=== PATIENT | male | born 1930 | race African-American/Black ===

== ENCOUNTER 2018-02-02 20:55 | Inpatient (IN) | payer MEDICARE, MEDICAID ==
[~2018-02-02] VITALS: Ht 177.8 cm; Wt 58.8 kg
[~2018-02-02 20:55] MED LIST: ACET-2178 PO; ASPI-986 PO; CLON0.1T PO; CRAN450T10 PO; DOCU-150 PO; FAMO-134 PO; FURO-151 PO; HYDR-523 PO; MAG-55 PO; MULT1TAB11 PO; OCD PO
[2018-02-02] MEDS ORDERED: SODIUM CHLORIDE 0.9% 500 ML IV ONE (22:15)
[2018-02-02] MEDS ORDERED: ONDANSETRON HCL 4MG/2ML INJ IV ONE (22:15)
[2018-02-02 22:48] LABS: BASOPHILS % 0.4 % (0.0-2.0); EOSINOPHILS % 0.5 % (0.0-5.0); HEMATOCRIT. 34.4 % (42.0-52.0); HEMOGLOBIN. 11.1 g/dL (14.0-18.0); LYMPHOCYTES % 9.3 % (20.0-50.0); MEAN CORPUSCULAR HEMOGLOBIN 27.8 pg (28.0-32.0); MEAN CORPUSCULAR VOLUME 86.4 fL (80.0-94.0); MEAN PLATELET VOLUME 8.2 fl (7.4-10.4); MONOCYTES % 5.8 % (2.0-8.0); PLATELET 208 x1000/uL (130-400); RED BLOOD CELL COUNT 3.99 mill/uL (4.7-6.1); RED CELL DISTRIBUTION WIDTH 15.9 % (11.6-14.6)
[2018-02-02 22:58] LABS: CHLORIDE 103 mEq/L (98-107)
[2018-02-02 23:25] LABS: INR 1.1; PROTHROMBIN TIME 11.4 sec (9.1-11.1)
[2018-02-03] MEDS ORDERED: PIPERACILLIN/TAZOBACTAM 3.375GM/50ML PREMIX IV ONE (00:15)
[2018-02-03] MEDS ORDERED: SODIUM CHLORIDE 0.9% 1000ML BAG (SEPSIS BOLUS) IV ONE (00:15)
[2018-02-03] MEDS ORDERED: PIPERACILLIN/TAZ 3.375G PREMIX 50 ML IV NR (00:30)
[2018-02-03 00:46] LABS: CLARITY URINE TURBID (CLEAR); COLOR URINE ORANGE (YELLOW); KETONES URINE NEGATIVE (NEGATIVE); LEUKOCYTE ESTERASE URINE 1+ (NEGATIVE); NITRITE URINE POSITIVE (NEGATIVE); OCCULT BLOOD URINE 3+ (NEGATIVE); PROTEIN URINE 2+ (NEGATIVE); SPECIFIC GRAVITY URINE 1.027 (1.005-1.030)
[2018-02-03] MEDS ORDERED: IPRATROPIUM/ALBUTEROL 0.5-3(2.5)MG/3ML NEB INH PRN (14:15)
[2018-02-03] MEDS ORDERED: ONDANSETRON HCL 4MG/2ML INJ IV PRN (14:15)
[2018-02-03] MEDS ORDERED: DEXTROSE 50% WATER 50ML SYRINGE IV ONE (14:47)
[2018-02-03] MEDS ORDERED: PANTOPRAZOLE SODIUM 40 MG/VIAL IV NR (15:00)
[2018-02-03] MEDS ORDERED: DEXTROSE 50% WATER 50ML SYRINGE IV NR (15:00)
[2018-02-03 16:00] VITALS: BP 124/67
[2018-02-03 16:25] LABS: BG BASE EXCESS 7.6 mmol/L (-2.0-2.0); BG CARBOXYHEMOGLOBIN 0.8 % (0.5-1.5); BG DEOXYHEMOGLOBIN 10.5 % (0.0-5.0); BG FRACTION INSPIRED OXYGEN 36; BG HCO3 ACT 34.2 mmol/L (22.0-26.0); BG METHEMOGLOBIN 0.3 % (0.0-1.5); BG OXYGEN SATURATION 89.4 % (92.0-98.5); BG OXYHEMOGLOBIN 88.4 % (94.0-97.0); BG PCO2 58.5 mmHg (35.0-45.0); BG PH 7.385 (7.350-7.450); BG SAMPLE SITE LEFT BRACHIAL; BG TOTAL HEMOGLOBIN 11.6 g/dL (12.0-18.0); BG VENT MODE NASAL CANNULA
[2018-02-03] MEDS ORDERED: DEXT 5%/0.45% NACL 500ML 500 ML IV SCH (18:00)
[2018-02-03] MEDS ORDERED: METHYLPREDNISOLONE SOD SUCC 125 MG/2 ML VIAL IV NR (18:00)
[2018-02-03] MEDS ORDERED: MORPHINE SULFATE 4 MG/ML CPJ (NOT FOR IM USE) IV PRN (18:00)
[2018-02-03] MEDS ORDERED: LEVOFLOXACIN 500MG PREMIX 100 ML IV SCH (19:00)
[2018-02-03] MEDS: PANTOPRAZOLE SODIUM 40 MG/VIAL IV SCH (19:02)
[2018-02-03 20:00] VITALS: BP 117/63
[2018-02-03] MEDS: METRONIDAZOLE 500 MG PREMIX 100 ML IV SCH (21:09)
[2018-02-04] VITALS: BP 145/81
[2018-02-04 04:00] VITALS: BP 126/81
[2018-02-04] MEDS: IPRATROPIUM/ALBUTEROL 0.5-3(2.5)MG/3ML NEB INH SCH ×4 (05:10→20:50)
[2018-02-04] MEDS: METRONIDAZOLE 500 MG PREMIX 100 ML IV SCH ×3 (05:45→22:20)
[2018-02-04 06:56] LABS: BASOPHILS % 0.3 % (0.0-2.0); HEMATOCRIT. 35.6 % (42.0-52.0); HEMOGLOBIN. 11.7 g/dL (14.0-18.0); LYMPHOCYTES % 15.4 % (20.0-50.0); MEAN CORPUSCULAR HEMOGLOBIN 28.4 pg (28.0-32.0); MEAN CORPUSCULAR VOLUME 86.7 fL (80.0-94.0); MEAN PLATELET VOLUME 9.1 fl (7.4-10.4); MONOCYTES % 0.9 % (2.0-8.0); NEUTROPHILS % 83.4 % (40.0-76.0); PLATELET 212 x1000/uL (130-400); RED CELL DISTRIBUTION WIDTH 15.7 % (11.6-14.6)
[2018-02-04 07:03] LABS: CHLORIDE 105 mEq/L (98-107)
[2018-02-04 08:00] VITALS: BP 148/80
[2018-02-04 08:32] LABS: BG BASE EXCESS 4.2 mmol/L (-2.0-2.0); BG CARBOXYHEMOGLOBIN 0.8 % (0.5-1.5); BG DEOXYHEMOGLOBIN 5.9 % (0.0-5.0); BG FRACTION INSPIRED OXYGEN 32; BG HCO3 ACT 30.7 mmol/L (22.0-26.0); BG METHEMOGLOBIN 0.2 % (0.0-1.5); BG OXYHEMOGLOBIN 93.1 % (94.0-97.0); BG PH 7.364 (7.350-7.450); BG PO2 72.2 mmHg (75.0-100.0); BG SAMPLE SITE LEFT BRACHIAL; BG TOTAL HEMOGLOBIN 11.7 g/dL (12.0-18.0); BG VENT MODE NASAL CANNULA
[2018-02-04] MEDS: BUDESONIDE 0.5MG/2ML NEB HHN SCH ×2 (08:49→20:50)
[2018-02-04] MEDS: AMLODIPINE 10MG TABLET PO SCH (09:20)
[2018-02-04] MEDS: PANTOPRAZOLE SODIUM 40 MG/VIAL IV SCH (09:20)
[2018-02-04 12:00] VITALS: BP 107/58
[2018-02-04 16:00] VITALS: BP 95/46
[2018-02-04 20:00] VITALS: BP 97/42
[2018-02-04] MEDS: LEVOFLOXACIN 250MG PREMIX 50 ML IV SCH (21:05)
[2018-02-05] VITALS: BP 101/58
[2018-02-05] MEDS: IPRATROPIUM/ALBUTEROL 0.5-3(2.5)MG/3ML NEB INH SCH ×4 (00:45→21:02)
[2018-02-05 04:00] VITALS: BP 115/61
[2018-02-05] MEDS: METRONIDAZOLE 500 MG PREMIX 100 ML IV SCH ×3 (05:28→21:26)
[2018-02-05 07:38] LABS: BASOPHILS % 0.5 % (0.0-2.0); EOSINOPHILS % 0.1 % (0.0-5.0); HEMATOCRIT. 31.2 % (42.0-52.0); HEMOGLOBIN. 10.4 g/dL (14.0-18.0); LYMPHOCYTES % 17.9 % (20.0-50.0); MEAN CORPUSCULAR HEMOGLOBIN 28.8 pg (28.0-32.0); MEAN CORPUSCULAR VOLUME 86.4 fL (80.0-94.0); MEAN PLATELET VOLUME 8.2 fl (7.4-10.4); MONOCYTES % 7.7 % (2.0-8.0); NEUTROPHILS % 73.8 % (40.0-76.0); PLATELET 175 x1000/uL (130-400); RED BLOOD CELL COUNT 3.62 mill/uL (4.7-6.1); RED CELL DISTRIBUTION WIDTH 15.6 % (11.6-14.6)
[2018-02-05 08:00] VITALS: BP 105/49
[2018-02-05 08:10] LABS: CHLORIDE 105 mEq/L (98-107)
[2018-02-05] MEDS: BUDESONIDE 0.5MG/2ML NEB HHN SCH ×2 (08:10→21:01)
[2018-02-05] MEDS: AMLODIPINE 10MG TABLET PO SCH (09:00)
[2018-02-05] MEDS: PANTOPRAZOLE SODIUM 40 MG/VIAL IV SCH (10:15)
[2018-02-05 12:00] VITALS: BP 124/66
[2018-02-05 16:00] VITALS: BP 122/68
[2018-02-05 20:00] VITALS: BP 128/66
[2018-02-05] MEDS: LEVOFLOXACIN 250MG PREMIX 50 ML IV SCH (20:00)
[2018-02-06] VITALS: BP 120/70
[2018-02-06] MEDS: IPRATROPIUM/ALBUTEROL 0.5-3(2.5)MG/3ML NEB INH SCH ×4 (02:39→21:26)
[2018-02-06 04:00] VITALS: BP 101/71
[2018-02-06] MEDS ORDERED: METRONIDAZOLE 500MG TABLET PO SCH (06:00)
[2018-02-06 08:00] VITALS: BP 138/73
[2018-02-06] MEDS: BUDESONIDE 0.5MG/2ML NEB HHN SCH ×2 (08:45→21:26)
[2018-02-06] MEDS: AMLODIPINE 10MG TABLET PO SCH (08:48)
[2018-02-06] MEDS: PANTOPRAZOLE SODIUM 40 MG/VIAL IV SCH (08:48)
[2018-02-06 12:00] VITALS: BP 109/64
[2018-02-06] MEDS ORDERED: FUROSEMIDE 40MG/4ML VIAL IVP SCH (12:30)
[2018-02-06 16:00] VITALS: BP 134/67
[2018-02-06 20:00] VITALS: BP 108/55
[2018-02-06] MEDS ORDERED: LEVOFLOXACIN 250MG TABLET PO SCH (20:00)
[2018-02-07] VITALS (7 sets, daily range): BP systolic 110–132; BP diastolic 63–74
[2018-02-07] MEDS: IPRATROPIUM/ALBUTEROL 0.5-3(2.5)MG/3ML NEB INH SCH ×3 (01:04→15:15)
[2018-02-07 06:46] LABS: BASOPHILS % 0.6 % (0.0-2.0); EOSINOPHILS % 1.8 % (0.0-5.0); HEMATOCRIT. 32.9 % (42.0-52.0); HEMOGLOBIN. 10.8 g/dL (14.0-18.0); LYMPHOCYTES % 16.6 % (20.0-50.0); MEAN CORPUSCULAR VOLUME 85.5 fL (80.0-94.0); MEAN PLATELET VOLUME 8.2 fl (7.4-10.4); MONOCYTES % 8.9 % (2.0-8.0); NEUTROPHILS % 72.1 % (40.0-76.0); PLATELET 168 x1000/uL (130-400); RED BLOOD CELL COUNT 3.85 mill/uL (4.7-6.1); RED CELL DISTRIBUTION WIDTH 15.9 % (11.6-14.6)
[2018-02-07 07:25] LABS: CHLORIDE 101 mEq/L (98-107)
[2018-02-07] MEDS: BUDESONIDE 0.5MG/2ML NEB HHN SCH (08:35)
[2018-02-07] MEDS: PANTOPRAZOLE SODIUM 40 MG/VIAL IV SCH (09:49)
[2018-02-07] MEDS: AMLODIPINE 10MG TABLET PO SCH (09:51)
[2018-02-07] MEDS ORDERED: ATORVASTATIN CALCIUM 10MG TABLET PO SCH (21:00)
[2018-02-08] MEDS ORDERED: OMEPRAZOLE 20MG CAPSULE EXTENDED RELEASE PO SCH (06:45)
[2018-02-12] MEDS ORDERED: ATOR10TA PO (12:44)
[2018-02-12] MEDS ORDERED: ONDA4TAB5 PO (12:44)
[2018-02-12] MEDS ORDERED: AMLO10TA4 PO (12:44)
[2018-02-12] MEDS ORDERED: ACET-2178 PO (12:44)
[2018-02-12] MEDS ORDERED: IPRA3AMP31 NEB (12:44)
[2018-02-12] MEDS ORDERED: BUDE0.5A3 NEB (12:44)
[2018-02-12] MEDS ORDERED: OMEP20CA10 PO (12:44)
[2018-02-12] MEDS ORDERED: CRAN450T10 PO (12:44)
[2018-02-12] MEDS ORDERED: DOCU-138 PO (12:44)
== END 2018-02-07 18:05 | DRG 871 ==
LOC: ER 20:55 → 5WST 02-03 00:23 → SUPCPDRO 02-03 14:01 → ENRESERV 02-03 14:54
PROVIDERS: ADMIT Hospitalist; ATTEND Hospitalist
DX: A41.9 Sepsis, unspecified organism (principal); J96.00 Acute respiratory failure, unspecified whether with hypoxia or hypercapnia; K85.10 Biliary acute pancreatitis without necrosis or infection; N39.0 Urinary tract infection, site not specified; J44.1 Chronic obstructive pulmonary disease with (acute) exacerbation; I13.0 Hypertensive heart and chronic kidney disease with heart failure and stage 1 through stage 4 chronic kidney disease, or unspecified chronic kidney disease; I50.32 Chronic diastolic (congestive) heart failure; I31.3 Pericardial effusion (noninflammatory); J98.11 Atelectasis; K80.18 Calculus of gallbladder with other cholecystitis without obstruction; F03.90 Unspecified dementia, unspecified severity, without behavioral disturbance, psychotic disturbance, mood disturbance, and anxiety; I73.9 Peripheral vascular disease, unspecified; K21.9 Gastro-esophageal reflux disease without esophagitis; N18.9 Chronic kidney disease, unspecified; K82.8 Other specified diseases of gallbladder; R32 Unspecified urinary incontinence; R74.0 Nonspecific elevation of levels of transaminase and lactic acid dehydrogenase [LDH]; Z86.73 Personal history of transient ischemic attack (TIA), and cerebral infarction without residual deficits; Z95.828 Presence of other vascular implants and grafts; Z79.899 Other long term (current) drug therapy; Z79.82 Long term (current) use of aspirin
CPT/HCPCS: 36415; 36600; 71045; 74176; 82375; 82805; 82962; 87804; 93970; 94640; 96361; 96365; 96375; 99285; C9113; J1940; J1956; J2405; J2543; J2930; J3490; J7030; J7040; J7620; J7626

== ENCOUNTER 2018-10-21 15:30 | Inpatient (IN) | payer MEDICARE, MEDICAID ==
[~2018-10-21] VITALS: Ht 177.8 cm; Wt 52.6 kg
[2018-10-21 15:18] VITALS: BP 110/57
[2018-10-21] MEDS ORDERED: ONDANSETRON HCL 4MG/2ML INJ IV PRN (16:15)
[2018-10-21] MEDS ORDERED: LORAZEPAM 2MG/ML CPJ IV PRN (16:15)
[2018-10-21] MEDS ORDERED: DOCUSATE SODIUM 100MG CAPSULE PO PRN (16:15)
[2018-10-21] MEDS ORDERED: MAGNESIUM/ALUMINUM HYDROXIDE/SIMETHICONE 30ML UDC PO PRN (16:15)
[2018-10-21] MEDS ORDERED: ENOXAPARIN 40MG/0.4ML SYR SUBCUT SCH (16:15)
[2018-10-21] MEDS ORDERED: CLONIDINE 0.1MG TABLET PO PRN (16:15)
[2018-10-21] MEDS ORDERED: IPRATROPIUM/ALBUTEROL 0.5-3(2.5)MG/3ML NEB INH PRN (16:15)
[2018-10-21] MEDS ORDERED: GUAIFENESIN 200MG/10ML SUGAR FREE UDC PO PRN (16:15)
[2018-10-21] MEDS ORDERED: ACETAMINOPHEN 325MG TABLET PO PRN (16:15)
[2018-10-21] MEDS ORDERED: HYDROCODONE/ACETAMINOPHEN 5/325MG TABLET PO PRN (16:15)
[2018-10-21] MEDS ORDERED: DOCU-138 PO (16:25)
[2018-10-21] MEDS ORDERED: AMLO10TA4 PO (16:25)
[2018-10-21] MEDS ORDERED: IPRA3AMP31 NEB (16:25)
[2018-10-21] MEDS ORDERED: ATOR10TA69 PO (16:25)
[2018-10-21] MEDS ORDERED: CLON0.1T PO (16:25)
[2018-10-21] MEDS ORDERED: PULM50 IH (16:25)
[2018-10-21] MEDS ORDERED: OMEP20CA5 PO (16:25)
[2018-10-21] MEDS ORDERED: FURO20TA4 PO (16:25)
[2018-10-21] MEDS ORDERED: POTA20TA82 PO (16:25)
[2018-10-21] MEDS ORDERED: ACET160S2 PO (16:25)
[2018-10-21] MEDS ORDERED: IPRA3AMP9 NEB (16:25)
[2018-10-21] MEDS ORDERED: CRAN450T10 PO (16:25)
[2018-10-21] MEDS: FUROSEMIDE 40MG/4ML VIAL IV SCH (17:48)
[2018-10-21] MEDS: METHYLPREDNISOLONE SOD SUCC 125 MG/2 ML VIAL IV SCH ×2 (17:49→22:00)
[2018-10-21] MEDS ORDERED: LEVOFLOXACIN 500MG PREMIX 100 ML IV SCH (18:00)
[2018-10-21 20:00] VITALS: BP 110/63
[2018-10-21 20:18] LABS: BASOPHILS % 0.5 % (0.0-2.0); EOSINOPHILS % 1.1 % (0.0-5.0); HEMATOCRIT. 33.7 % (42.0-52.0); LYMPHOCYTES % 9.4 % (20.0-50.0); MEAN CORPUSCULAR HEMOGLOBIN 28.3 pg (28.0-32.0); MEAN CORPUSCULAR VOLUME 86.9 fL (80.0-94.0); MEAN PLATELET VOLUME 8.2 fl (7.4-10.4); PLATELET 220 x1000/uL (130-400); RED BLOOD CELL COUNT 3.88 mill/uL (4.7-6.1)
[2018-10-21 20:23] LABS: CHLORIDE 106 mEq/L (98-107)
[2018-10-21 20:30] LABS: LDL CHOLESTEROL 61 mg/dL (5-100)
[2018-10-21 20:31] LABS: HDL CHOLESTEROL 53 mg/dL (40-59)
[2018-10-21] MEDS: IPRATROPIUM/ALBUTEROL 0.5-3(2.5)MG/3ML NEB INH SCH (21:18)
[2018-10-21] MEDS: ATORVASTATIN CALCIUM 10MG TABLET PO SCH (21:57)
[2018-10-22] VITALS: BP 112/60
[2018-10-22] MEDS: IPRATROPIUM/ALBUTEROL 0.5-3(2.5)MG/3ML NEB INH SCH ×2 (02:33→20:15)
[2018-10-22 04:00] VITALS: BP 134/83
[2018-10-22] MEDS: METHYLPREDNISOLONE SOD SUCC 125 MG/2 ML VIAL IV SCH (05:30)
[2018-10-22] MEDS ORDERED: MAGNESIUM 1 G PREMIX 100 ML IV NR (06:00)
[2018-10-22 08:00] VITALS: BP 114/66
[2018-10-22] MEDS: FUROSEMIDE 40MG/4ML VIAL IV SCH (09:24)
[2018-10-22] MEDS: ENOXAPARIN 30MG/0.3ML SYR SUBCUT SCH (09:26)
[2018-10-22 12:00] VITALS: BP 107/58
[2018-10-22 16:00] VITALS: BP 110/64
[2018-10-22] MEDS: LEVOFLOXACIN 250MG PREMIX 50 ML IV SCH (17:08)
[2018-10-22] MEDS: METHYLPREDNISOLONE SOD SUCC 40 MG/ML VIAL IV SCH (17:08)
[2018-10-22 20:00] VITALS: BP 122/74
[2018-10-22] MEDS: ATORVASTATIN CALCIUM 10MG TABLET PO SCH (20:15)
[2018-10-23] VITALS (7 sets, daily range): BP systolic 98–141; BP diastolic 48–73
[2018-10-23] MEDS: IPRATROPIUM/ALBUTEROL 0.5-3(2.5)MG/3ML NEB INH SCH ×4 (02:22→20:29)
[2018-10-23] MEDS: METHYLPREDNISOLONE SOD SUCC 40 MG/ML VIAL IV SCH (05:21)
[2018-10-23] MEDS: FUROSEMIDE 40MG/4ML VIAL IV SCH (08:44)
[2018-10-23] MEDS: ENOXAPARIN 30MG/0.3ML SYR SUBCUT SCH (08:44)
[2018-10-23] MEDS: LEVOFLOXACIN 250MG PREMIX 50 ML IV SCH (18:14)
[2018-10-23] MEDS: ATORVASTATIN CALCIUM 10MG TABLET PO SCH (20:23)
[2018-10-24 04:00] VITALS: BP 114/57
[2018-10-24] MEDS: IPRATROPIUM/ALBUTEROL 0.5-3(2.5)MG/3ML NEB INH SCH ×3 (04:05→12:41)
[2018-10-24 08:00] VITALS: BP 109/58
[2018-10-24] MEDS ORDERED: METHYLPREDNISOLONE SOD SUCC 40 MG/ML VIAL IV SCH (09:00)
[2018-10-24] MEDS ORDERED: PREDNISONE 20MG TABLET PO SCH (10:30)
[2018-10-24] MEDS: FUROSEMIDE 40MG/4ML VIAL IV SCH (10:54)
[2018-10-24] MEDS: ENOXAPARIN 30MG/0.3ML SYR SUBCUT SCH (10:59)
[2018-10-24 12:00] VITALS: BP 86/49
[2018-10-24 16:00] VITALS: BP 99/58
[2018-10-24 16:20] VITALS: BP 105/69
== END 2018-10-24 17:50 | DRG 191 ==
LOC: 7WST 15:30
PROVIDERS: ADMIT Hospitalist; ATTEND Hospitalist
DX: J44.1 Chronic obstructive pulmonary disease with (acute) exacerbation (principal); E44.1 Mild protein-calorie malnutrition; Z68.1 Body mass index [BMI] 19.9 or less, adult; D64.9 Anemia, unspecified; E78.5 Hyperlipidemia, unspecified; I11.0 Hypertensive heart disease with heart failure; I50.9 Heart failure, unspecified
CPT/HCPCS: 36415; 71045; 80061; 83735; 84484; 93005; 94640; J1650; J1940; J1956; J2920; J2930; J3475; J7050; J7512; J7620

== ENCOUNTER 2018-12-18 16:58 | Inpatient (IN) | payer MEDICARE, MEDICAID ==
[~2018-12-18] VITALS: Ht 170.2 cm; Wt 62.1 kg
[~2018-12-18 16:58] MED LIST changes: -ACET-2178 PO; +ACET160S2 PO; +AMLO10TA4 PO; -ASPI-986 PO; +ATOR10TA69 PO; +DOCU-138 PO; -DOCU-150 PO; -FAMO-134 PO; -FURO-151 PO; +FURO20TA4 PO; -HYDR-523 PO; +IPRA3AMP31 NEB; +IPRA3AMP9 NEB; -MAG-55 PO; -MULT1TAB11 PO; -OCD PO; +OMEP20CA5 PO; +POTA20TA82 PO; +PULM50 IH
[2018-12-18] MEDS ORDERED: METHYLPREDNISOLONE SOD SUCC 125 MG/2 ML VIAL IV STA (17:25)
[2018-12-18] MEDS ORDERED: SODIUM CHLORIDE 0.9% 500 ML IV ONE (17:25)
[2018-12-18] MEDS ORDERED: IPRATROPIUM/ALBUTEROL 0.5-3(2.5)MG/3ML NEB HHN ONE (17:30)
[2018-12-18] MEDS ORDERED: LEVOFLOXACIN 500MG PREMIX 100 ML IV ONE (17:30)
[2018-12-18 18:05] LABS: BASOPHILS % 0.3 % (0.0-2.0); EOSINOPHILS % 0.9 % (0.0-5.0); HEMOGLOBIN. 13.6 g/dL (14.0-18.0); LYMPHOCYTES % 8.9 % (20.0-50.0); MEAN CORPUSCULAR VOLUME 89.8 fL (80.0-94.0); MEAN PLATELET VOLUME 8.2 fl (7.4-10.4); MONOCYTES % 6.3 % (2.0-8.0); NEUTROPHILS % 83.6 % (40.0-76.0); PLATELET 194 x1000/uL (130-400); RED BLOOD CELL COUNT 4.68 mill/uL (4.7-6.1); RED CELL DISTRIBUTION WIDTH 16.6 % (11.6-14.6)
[2018-12-18 18:07] LABS: BG BASE EXCESS 1.3 mmol/L (-2.0-2.0); BG CARBOXYHEMOGLOBIN 0.6 % (0.5-1.5); BG DEOXYHEMOGLOBIN 3.4 % (0.0-5.0); BG FRACTION INSPIRED OXYGEN 36; BG HCO3 ACT 26.8 mmol/L (22.0-26.0); BG METHEMOGLOBIN 0.4 % (0.0-1.5); BG OXYGEN SATURATION 96.6 % (92.0-98.5); BG OXYHEMOGLOBIN 95.6 % (94.0-97.0); BG PCO2 45.8 mmHg (35.0-45.0); BG PH 7.385 (7.350-7.450); BG PO2 86.2 mmHg (75.0-100.0); BG SAMPLE SITE RIGHT RADIAL; BG TOTAL HEMOGLOBIN 13.4 g/dL (12.0-18.0); BG VENT MODE NASAL CANNULA
[2018-12-18 18:10] LABS: CHLORIDE 105 mEq/L (98-107)
[2018-12-18 18:11] LABS: PARTIAL THROMBOPLASTIN TIME 26.7 sec (23.4-31.0); PROTHROMBIN TIME 10.5 sec (9.6-11.0)
[2018-12-18 18:14] LABS: ETHANOL BLOOD < 10 mg/dL
[2018-12-18 18:19] LABS: CREATINE KINASE 65 IU/L (39-308)
[2018-12-18 18:21] LABS: CREATINE KINASE MB FRACTION 7.4 ng/mL (0.5-3.6)
[2018-12-18 18:46] LABS: CLARITY URINE TURBID (CLEAR); COLOR URINE YELLOW (YELLOW); KETONES URINE TRACE (NEGATIVE); LEUKOCYTE ESTERASE URINE 3+ (NEGATIVE); NITRITE URINE NEGATIVE (NEGATIVE); OCCULT BLOOD URINE 3+ (NEGATIVE); PROTEIN URINE TRACE (NEGATIVE); UROBILINOGEN URINE 0.2 E.U./dL (0.2-1.0)
[2018-12-18] MEDS ORDERED: FENTANYL CITRATE/PF 50MCG/ML 2ML VIAL IV ONE (19:30)
[2018-12-18] MEDS ORDERED: KETAMINE HCL 50 MG/ML 10ML IV ONE (19:30)
[2018-12-18] MEDS ORDERED: MIDAZOLAM HCL 2 MG/2 ML VIAL IV ONE (19:30)
[2018-12-18] MEDS ORDERED: LIDOCAINE HCL/PF 1% 10 MG/ML 5ML VIAL IJ ONE (19:45)
[2018-12-18] MEDS ORDERED: PROPOFOL 10MG/ML 100ML 100 ML IV SCH (20:45)
[2018-12-18] MEDS ORDERED: PROPOFOL 10MG/ML 100ML 100 ML IV ONE (21:00)
[2018-12-18] MEDS ORDERED: SUCCINYLCHOLINE CHLORIDE 200MG/10ML IV ONE (21:00)
[2018-12-18] MEDS ORDERED: MIDAZOLAM HCL 50 MG in DEXTROSE 5% WATER 40 ML IV NR (21:15)
[2018-12-18] MEDS ORDERED: MIDAZOLAM HCL 50 MG in DEXTROSE 5% WATER 40 ML IV ONE (21:15)
[2018-12-18] MEDS ORDERED: LORAZEPAM 2MG/ML CPJ IV ONE (21:15)
[2018-12-18] MEDS ORDERED: NOREPINEPHRINE 4 MG in DEXT 5% WATER 246 ML IV ONE (21:45)
[2018-12-18] MEDS ORDERED: NOREPINEPHRINE 4MG/250ML PMX 250 ML IV SCH (21:45)
[2018-12-18 21:50] LABS: BG BASE EXCESS -4.4 mmol/L (-2.0-2.0); BG CARBOXYHEMOGLOBIN 0.1 % (0.5-1.5); BG DEOXYHEMOGLOBIN 4.2 % (0.0-5.0); BG FRACTION INSPIRED OXYGEN 40; BG HCO3 ACT 22.1 mmol/L (22.0-26.0); BG METHEMOGLOBIN 0.3 % (0.0-1.5); BG OXYGEN SATURATION 95.8 % (92.0-98.5); BG OXYHEMOGLOBIN 95.4 % (94.0-97.0); BG PCO2 46.7 mmHg (35.0-45.0); BG PH 7.293 (7.350-7.450); BG PO2 88.8 mmHg (75.0-100.0); BG SAMPLE SITE RIGHT RADIAL; BG TIDAL VOLUME(mL) 500 mL; BG TOTAL HEMOGLOBIN 10.8 g/dL (12.0-18.0); BG VENT MODE VENT - A/C; BG VENT RATE 12 set
[2018-12-18] MEDS ORDERED: ONDANSETRON HCL 4MG/2ML INJ IV PRN (22:45)
[2018-12-18] MEDS ORDERED: MORPHINE SULFATE 2 MG/ML CPJ (NOT FOR IM USE) IV PRN (22:45)
[2018-12-18] MEDS ORDERED: ACETAMINOPHEN 325MG TABLET PO PRN (22:45)
[2018-12-18] MEDS ORDERED: LEVOFLOXACIN 500MG PREMIX 100 ML IV SCH (22:45)
[2018-12-18] MEDS ORDERED: DEXT 5%/0.45% NACL 1000ML 1,000 ML IV SCH (23:49)
[2018-12-19] VITALS (80 sets, daily range): BP systolic 82–172; BP diastolic 34–98
[2018-12-19 03:09] LABS: BG BASE EXCESS -10.2 mmol/L (-2.0-2.0); BG CARBOXYHEMOGLOBIN 0.4 % (0.5-1.5); BG DEOXYHEMOGLOBIN 3.3 % (0.0-5.0); BG FRACTION INSPIRED OXYGEN 40; BG HCO3 ACT 15.3 mmol/L (22.0-26.0); BG METHEMOGLOBIN 0.1 % (0.0-1.5); BG OXYGEN SATURATION 96.7 % (92.0-98.5); BG OXYHEMOGLOBIN 96.2 % (94.0-97.0); BG PCO2 32.7 mmHg (35.0-45.0); BG PH 7.287 (7.350-7.450); BG SAMPLE SITE LEFT FEMORAL; BG TIDAL VOLUME(mL) 500 mL; BG TOTAL HEMOGLOBIN 12.7 g/dL (12.0-18.0); BG VENT MODE VENT - A/C; BG VENT RATE 14 set
[2018-12-19] MEDS: MIDAZOLAM HCL 50 MG in DEXTROSE 5% WATER 40 ML IV PRN ×2 (03:50→20:36)
[2018-12-19] MEDS: FENTANYL CITRATE/PF 500 MCG in SODIUM CHLORIDE 0.9% 40 ML IV PRN (03:52)
[2018-12-19] MEDS: DEXT 5%/0.45% NACL 1000ML 1,000 ML IV SCH ×2 (03:54→17:33)
[2018-12-19] MEDS ORDERED: NOREPINEPHRINE 8 MG in DEXT 5% WATER 242 ML IV PRN (04:00)
[2018-12-19] MEDS ORDERED: SODIUM BICARBONATE 8.4% 1 MEQ/ML 50ML SYR IV SCH (05:45)
[2018-12-19 07:55] LABS: BG BASE EXCESS -0.5 mmol/L (-2.0-2.0); BG DEOXYHEMOGLOBIN 3.7 % (0.0-5.0); BG FRACTION INSPIRED OXYGEN 40; BG HCO3 ACT 23.7 mmol/L (22.0-26.0); BG METHEMOGLOBIN 0.2 % (0.0-1.5); BG OXYGEN SATURATION 96.3 % (92.0-98.5); BG OXYHEMOGLOBIN 95.1 % (94.0-97.0); BG PCO2 37.8 mmHg (35.0-45.0); BG PEEP (cmH2O) 0 cmH2O; BG PH 7.416 (7.350-7.450); BG PO2 78.9 mmHg (75.0-100.0); BG SAMPLE SITE RIGHT RADIAL; BG TIDAL VOLUME(mL) 500 mL; BG TOTAL HEMOGLOBIN 12.2 g/dL (12.0-18.0); BG VENT MODE VENT - A/C; BG VENT RATE 16 set
[2018-12-19] MEDS ORDERED: ENOXAPARIN 40MG/0.4ML SYR SUBCUT SCH (09:00)
[2018-12-19 09:40] LABS: HEMATOCRIT. 36.2 % (42.0-52.0); HEMOGLOBIN. 11.8 g/dL (14.0-18.0); MEAN CORPUSCULAR HEMOGLOBIN 29.5 pg (28.0-32.0); MEAN CORPUSCULAR VOLUME 90.3 fL (80.0-94.0); MEAN PLATELET VOLUME 8.5 fl (7.4-10.4); PLATELET 153 x1000/uL (130-400); RED BLOOD CELL COUNT 4.01 mill/uL (4.7-6.1); RED CELL DISTRIBUTION WIDTH 17.1 % (11.6-14.6)
[2018-12-19] MEDS ORDERED: IPRATROPIUM/ALBUTEROL 0.5-3(2.5)MG/3ML NEB HHN PRN (09:45)
[2018-12-19 10:06] LABS: CHLORIDE 113 mEq/L (98-107)
[2018-12-19] MEDS: METHYLPREDNISOLONE SOD SUCC 40 MG/ML VIAL IV SCH ×2 (11:56→17:35)
[2018-12-19] MEDS: BUDESONIDE 0.5MG/2ML NEB HHN SCH ×2 (12:51→20:18)
[2018-12-19] MEDS: IPRATROPIUM/ALBUTEROL 0.5-3(2.5)MG/3ML NEB HHN SCH ×3 (12:51→20:18)
[2018-12-19 12:56] LABS: PLATELET ESTIMATE NORMAL
[2018-12-19] MEDS: LEVOFLOXACIN 250MG PREMIX 50 ML IV SCH (17:35)
[2018-12-19] MEDS: FAMOTIDINE 20MG/2ML VIAL IV SCH (20:43)
[2018-12-20] VITALS (41 sets, daily range): BP systolic 92–169; BP diastolic 32–91
[2018-12-20] MEDS: IPRATROPIUM/ALBUTEROL 0.5-3(2.5)MG/3ML NEB HHN SCH ×6 (00:14→20:41)
[2018-12-20] MEDS: FENTANYL CITRATE/PF 500 MCG in SODIUM CHLORIDE 0.9% 40 ML IV PRN ×2 (00:44→17:24)
[2018-12-20] MEDS: METHYLPREDNISOLONE SOD SUCC 40 MG/ML VIAL IV SCH ×3 (01:17→17:24)
[2018-12-20 06:18] LABS: HEMATOCRIT. 37.1 % (42.0-52.0); HEMOGLOBIN. 12.2 g/dL (14.0-18.0); MEAN CORPUSCULAR HEMOGLOBIN 29.8 pg (28.0-32.0); MEAN CORPUSCULAR VOLUME 90.7 fL (80.0-94.0); MEAN PLATELET VOLUME 9.1 fl (7.4-10.4); PLATELET 83 x1000/uL (130-400); RED BLOOD CELL COUNT 4.09 mill/uL (4.7-6.1); RED CELL DISTRIBUTION WIDTH 16.9 % (11.6-14.6)
[2018-12-20 06:22] LABS: CHLORIDE 111 mEq/L (98-107)
[2018-12-20] MEDS: FAMOTIDINE 20MG/2ML VIAL IV SCH (08:23)
[2018-12-20 09:07] LABS: BG BASE EXCESS -3.5 mmol/L (-2.0-2.0); BG CARBOXYHEMOGLOBIN 0.4 % (0.5-1.5); BG DEOXYHEMOGLOBIN 2.4 % (0.0-5.0); BG FRACTION INSPIRED OXYGEN 40; BG HCO3 ACT 21.7 mmol/L (22.0-26.0); BG OXYGEN SATURATION 97.6 % (92.0-98.5); BG OXYHEMOGLOBIN 97.2 % (94.0-97.0); BG PCO2 39.3 mmHg (35.0-45.0); BG PH 7.359 (7.350-7.450); BG PO2 100.2 mmHg (75.0-100.0); BG SAMPLE SITE RIGHT RADIAL; BG TIDAL VOLUME(mL) 500 mL; BG TOTAL HEMOGLOBIN 11.8 g/dL (12.0-18.0); BG VENT MODE VENT - A/C; BG VENT RATE 16 set
[2018-12-20] MEDS: BUDESONIDE 0.5MG/2ML NEB HHN SCH ×2 (09:22→20:42)
[2018-12-20] MEDS: MIDAZOLAM HCL 50 MG in DEXTROSE 5% WATER 40 ML IV PRN (09:54)
[2018-12-20] MEDS: DEXT 5%/0.45% NACL 1000ML 1,000 ML IV SCH (10:40)
[2018-12-20 14:34] LABS: PLATELET ESTIMATE DECREASED
[2018-12-20] MEDS: LEVOFLOXACIN 250MG PREMIX 50 ML IV SCH (17:24)
[2018-12-21] VITALS (37 sets, daily range): BP systolic 81–153; BP diastolic 53–96
[2018-12-21] MEDS: IPRATROPIUM/ALBUTEROL 0.5-3(2.5)MG/3ML NEB HHN SCH ×6 (00:31→20:06)
[2018-12-21] MEDS: MIDAZOLAM HCL 50 MG in DEXTROSE 5% WATER 40 ML IV PRN ×2 (00:46→10:45)
[2018-12-21] MEDS: DEXT 5%/0.45% NACL 1000ML 1,000 ML IV SCH ×2 (02:40→18:50)
[2018-12-21] MEDS: METHYLPREDNISOLONE SOD SUCC 40 MG/ML VIAL IV SCH ×3 (03:03→18:48)
[2018-12-21 04:42] LABS: HEMATOCRIT. 33.5 % (42.0-52.0); HEMOGLOBIN. 11.1 g/dL (14.0-18.0); MEAN CORPUSCULAR HEMOGLOBIN 29.4 pg (28.0-32.0); MEAN PLATELET VOLUME 8.8 fl (7.4-10.4); PLATELET 149 x1000/uL (130-400); RED BLOOD CELL COUNT 3.76 mill/uL (4.7-6.1); RED CELL DISTRIBUTION WIDTH 16.8 % (11.6-14.6)
[2018-12-21 04:53] LABS: CHLORIDE 109 mEq/L (98-107)
[2018-12-21] MEDS: BUDESONIDE 0.5MG/2ML NEB HHN SCH ×2 (08:18→20:06)
[2018-12-21 08:44] LABS: BG BASE EXCESS -1.9 mmol/L (-2.0-2.0); BG CARBOXYHEMOGLOBIN 0.4 % (0.5-1.5); BG DEOXYHEMOGLOBIN 2.6 % (0.0-5.0); BG FRACTION INSPIRED OXYGEN 40; BG HCO3 ACT 23.2 mmol/L (22.0-26.0); BG METHEMOGLOBIN 0.3 % (0.0-1.5); BG OXYGEN SATURATION 97.4 % (92.0-98.5); BG OXYHEMOGLOBIN 96.7 % (94.0-97.0); BG PCO2 40.6 mmHg (35.0-45.0); BG PH 7.374 (7.350-7.450); BG PO2 96.6 mmHg (75.0-100.0); BG SAMPLE SITE RIGHT RADIAL; BG TIDAL VOLUME(mL) 500 mL; BG TOTAL HEMOGLOBIN 11.7 g/dL (12.0-18.0); BG VENT MODE VENT - A/C; BG VENT RATE 16 set
[2018-12-21] MEDS: FAMOTIDINE 20MG/2ML VIAL IV SCH (09:14)
[2018-12-21 12:08] LABS: PLATELET ESTIMATE NORMAL
[2018-12-21] MEDS: FENTANYL CITRATE/PF 500 MCG in SODIUM CHLORIDE 0.9% 40 ML IV PRN ×2 (15:18→23:50)
[2018-12-21] MEDS: GENTAMICIN 100MG PREMIX 50 ML IV SCH (20:06)
[2018-12-22] VITALS (37 sets, daily range): BP systolic 82–189; BP diastolic 49–140
[2018-12-22] MEDS: IPRATROPIUM/ALBUTEROL 0.5-3(2.5)MG/3ML NEB HHN SCH ×6 (00:17→20:03)
[2018-12-22] MEDS: MIDAZOLAM HCL 50 MG in DEXTROSE 5% WATER 40 ML IV PRN ×2 (03:38→20:05)
[2018-12-22] MEDS: METHYLPREDNISOLONE SOD SUCC 40 MG/ML VIAL IV SCH ×2 (03:38→17:47)
[2018-12-22] MEDS: FENTANYL CITRATE/PF 500 MCG in SODIUM CHLORIDE 0.9% 40 ML IV PRN ×3 (05:06→20:04)
[2018-12-22 06:45] LABS: HEMATOCRIT. 33.7 % (42.0-52.0); HEMOGLOBIN. 10.9 g/dL (14.0-18.0); MEAN CORPUSCULAR HEMOGLOBIN 29.1 pg (28.0-32.0); MEAN CORPUSCULAR VOLUME 90.2 fL (80.0-94.0); MEAN PLATELET VOLUME 9.1 fl (7.4-10.4); PLATELET 155 x1000/uL (130-400); RED BLOOD CELL COUNT 3.74 mill/uL (4.7-6.1); RED CELL DISTRIBUTION WIDTH 17.2 % (11.6-14.6)
[2018-12-22 07:07] LABS: CHLORIDE 105 mEq/L (98-107)
[2018-12-22 08:23] LABS: PLATELET ESTIMATE NORMAL
[2018-12-22] MEDS: BUDESONIDE 0.5MG/2ML NEB HHN SCH (08:51)
[2018-12-22] MEDS: FAMOTIDINE 20MG/2ML VIAL IV SCH (08:57)
[2018-12-22 09:16] LABS: BG BASE EXCESS -4.6 mmol/L (-2.0-2.0); BG CARBOXYHEMOGLOBIN 0.1 % (0.5-1.5); BG DEOXYHEMOGLOBIN 7.1 % (0.0-5.0); BG FRACTION INSPIRED OXYGEN 35; BG HCO3 ACT 22.6 mmol/L (22.0-26.0); BG METHEMOGLOBIN 0.3 % (0.0-1.5); BG OXYGEN SATURATION 92.9 % (92.0-98.5); BG OXYHEMOGLOBIN 92.5 % (94.0-97.0); BG PCO2 51.2 mmHg (35.0-45.0); BG PH 7.262 (7.350-7.450); BG SAMPLE SITE LEFT BRACHIAL; BG TIDAL VOLUME(mL) 500 mL; BG VENT MODE VENT - A/C; BG VENT RATE 16 set
[2018-12-22] MEDS ORDERED: LIDOCAINE HCL 1% 20ML VIAL (Pyxis) INJ ONE (10:46)
[2018-12-22] MEDS: DEXT 5%/0.45% NACL 1000ML 1,000 ML IV SCH (12:10)
[2018-12-22] MEDS: GENTAMICIN 100MG PREMIX 50 ML IV SCH (12:47)
[2018-12-22] MEDS: ENOXAPARIN 40MG/0.4ML SYR SUBCUT SCH (13:01)
[2018-12-22] MEDS: FLUCONAZOLE 200 MG/100ML BAG 100 ML IV SCH (13:24)
[2018-12-23] VITALS (41 sets, daily range): BP systolic 66–176; BP diastolic 45–119
[2018-12-23] MEDS: IPRATROPIUM/ALBUTEROL 0.5-3(2.5)MG/3ML NEB HHN SCH ×3 (00:40→08:23)
[2018-12-23] MEDS: FENTANYL CITRATE/PF 500 MCG in SODIUM CHLORIDE 0.9% 40 ML IV PRN ×3 (02:59→20:18)
[2018-12-23] MEDS: DEXT 5%/0.45% NACL 1000ML 1,000 ML IV SCH ×2 (05:12→22:11)
[2018-12-23 05:47] LABS: HEMATOCRIT 30.9 % (42.0-52.0); HEMOGLOBIN 10.1 g/dL (14.0-18.0); MEAN CORPUSCULAR HEMOGLOBIN 29.2 pg (28.0-32.0); MEAN CORPUSCULAR VOLUME 89.9 fL (80.0-94.0); PLATELET 137 x1000/uL (130-400); RED BLOOD CELL COUNT 3.44 mill/uL (4.7-6.1); RED CELL DISTRIBUTION WIDTH 16.6 % (11.6-14.6)
[2018-12-23 05:50] LABS: CHLORIDE 105 mEq/L (98-107)
[2018-12-23] MEDS: GENTAMICIN 100MG PREMIX 50 ML IV SCH (06:38)
[2018-12-23] MEDS: METHYLPREDNISOLONE SOD SUCC 40 MG/ML VIAL IV SCH ×2 (08:00→18:16)
[2018-12-23] MEDS: FAMOTIDINE 20MG/2ML VIAL IV SCH (08:00)
[2018-12-23 08:54] LABS: BG BASE EXCESS -1.8 mmol/L (-2.0-2.0); BG CARBOXYHEMOGLOBIN 0.1 % (0.5-1.5); BG DEOXYHEMOGLOBIN 5.7 % (0.0-5.0); BG FRACTION INSPIRED OXYGEN 35; BG HCO3 ACT 24.7 mmol/L (22.0-26.0); BG METHEMOGLOBIN 0.2 % (0.0-1.5); BG OXYGEN SATURATION 94.3 % (92.0-98.5); BG PCO2 49.7 mmHg (35.0-45.0); BG PH 7.314 (7.350-7.450); BG PO2 71.6 mmHg (75.0-100.0); BG SAMPLE SITE LEFT BRACHIAL; BG TIDAL VOLUME(mL) 500 mL; BG TOTAL HEMOGLOBIN 10.4 g/dL (12.0-18.0); BG VENT MODE VENT - A/C; BG VENT RATE 18 set
[2018-12-23] MEDS: IPRATROPIUM BROMIDE (0.02%) 0.5MG/2.5ML NEB HHN SCH ×4 (11:46→23:45)
[2018-12-23] MEDS: FLUCONAZOLE 200 MG/100ML BAG 100 ML IV SCH (12:26)
[2018-12-23] MEDS: ENOXAPARIN 40MG/0.4ML SYR SUBCUT SCH (12:26)
[2018-12-23] MEDS: LORAZEPAM 2MG/ML CPJ IV PRN ×2 (12:40→19:11)
[2018-12-24] VITALS (46 sets, daily range): BP systolic 86–157; BP diastolic 51–118
[2018-12-24] MEDS: GENTAMICIN 100MG PREMIX 50 ML IV SCH ×2 (01:31→17:30)
[2018-12-24] MEDS: LORAZEPAM 2MG/ML CPJ IM PRN ×2 (01:57→07:16)
[2018-12-24] MEDS: FENTANYL CITRATE/PF 500 MCG in SODIUM CHLORIDE 0.9% 40 ML IV PRN (01:57)
[2018-12-24] MEDS: IPRATROPIUM BROMIDE (0.02%) 0.5MG/2.5ML NEB HHN SCH ×5 (04:10→20:15)
[2018-12-24 06:22] LABS: HEMOGLOBIN. 10.5 g/dL (14.0-18.0); MEAN CORPUSCULAR HEMOGLOBIN 29.5 pg (28.0-32.0); MEAN CORPUSCULAR VOLUME 90.4 fL (80.0-94.0); MEAN PLATELET VOLUME 8.7 fl (7.4-10.4); PLATELET 148 x1000/uL (130-400); RED BLOOD CELL COUNT 3.54 mill/uL (4.7-6.1); RED CELL DISTRIBUTION WIDTH 16.7 % (11.6-14.6)
[2018-12-24 06:32] LABS: CHLORIDE 103 mEq/L (98-107)
[2018-12-24 06:39] LABS: GENTAMICIN RANDOM 5.6 ug/mL
[2018-12-24 07:38] LABS: PLATELET ESTIMATE NORMAL
[2018-12-24] MEDS: FENTANYL CITRATE/PF 1,000 MCG in SODIUM CHLORIDE 0.9% 80 ML IV PRN ×2 (07:50→20:17)
[2018-12-24 08:26] LABS: BG CARBOXYHEMOGLOBIN 0.3 % (0.5-1.5); BG FRACTION INSPIRED OXYGEN 35; BG HCO3 ACT 25.7 mmol/L (22.0-26.0); BG METHEMOGLOBIN 0.2 % (0.0-1.5); BG OXYHEMOGLOBIN 93.5 % (94.0-97.0); BG PH 7.311 (7.350-7.450); BG PO2 68.8 mmHg (75.0-100.0); BG SAMPLE SITE LEFT RADIAL; BG TIDAL VOLUME(mL) 500 mL; BG VENT MODE VENT - A/C; BG VENT RATE 18 set
[2018-12-24] MEDS: METHYLPREDNISOLONE SOD SUCC 40 MG/ML VIAL IV SCH ×2 (08:33→17:30)
[2018-12-24] MEDS: FAMOTIDINE 20MG/2ML VIAL IV SCH (08:33)
[2018-12-24] MEDS: QUETIAPINE FUMARATE 25MG TABLET PO SCH ×2 (10:48→20:51)
[2018-12-24] MEDS: LORAZEPAM 2MG/ML CPJ IV PRN (10:48)
[2018-12-24] MEDS: MIDAZOLAM HCL 50 MG in DEXTROSE 5% WATER 50ML IV PRN (11:53)
[2018-12-24] MEDS: ENOXAPARIN 40MG/0.4ML SYR SUBCUT SCH (12:41)
[2018-12-24] MEDS ORDERED: SODIUM POLYSTYRENE SULFONATE 15 G/60 ML BOT PO SCH (12:45)
[2018-12-24] MEDS: FLUCONAZOLE 200 MG/100ML BAG 100 ML IV SCH (13:14)
[2018-12-24] MEDS: DEXT 5%/0.45% NACL 1000ML 1,000 ML IV SCH (14:13)
[2018-12-25] VITALS (47 sets, daily range): BP systolic 91–141; BP diastolic 52–114
[2018-12-25] MEDS: IPRATROPIUM BROMIDE (0.02%) 0.5MG/2.5ML NEB HHN SCH ×6 (00:09→21:03)
[2018-12-25 05:11] LABS: HEMATOCRIT. 30.7 % (42.0-52.0); MEAN CORPUSCULAR HEMOGLOBIN 29.1 pg (28.0-32.0); MEAN CORPUSCULAR VOLUME 89.6 fL (80.0-94.0); MEAN PLATELET VOLUME 8.4 fl (7.4-10.4); PLATELET 133 x1000/uL (130-400); RED BLOOD CELL COUNT 3.42 mill/uL (4.7-6.1); RED CELL DISTRIBUTION WIDTH 16.4 % (11.6-14.6)
[2018-12-25 05:21] LABS: CHLORIDE 105 mEq/L (98-107)
[2018-12-25] MEDS: MIDAZOLAM HCL 50 MG in DEXTROSE 5% WATER 50ML IV PRN (07:15)
[2018-12-25] MEDS: FAMOTIDINE 20MG/2ML VIAL IV SCH (08:25)
[2018-12-25] MEDS: METHYLPREDNISOLONE SOD SUCC 40 MG/ML VIAL IV SCH ×2 (08:25→17:44)
[2018-12-25] MEDS: QUETIAPINE FUMARATE 25MG TABLET PO SCH ×2 (08:25→21:16)
[2018-12-25] MEDS: DEXT 5%/0.45% NACL 1000ML 1,000 ML IV SCH (08:25)
[2018-12-25] MEDS: FENTANYL CITRATE/PF 1,000 MCG in SODIUM CHLORIDE 0.9% 80 ML IV PRN ×2 (08:44→22:32)
[2018-12-25 09:39] LABS: BG BASE EXCESS -3.3 mmol/L (-2.0-2.0); BG CARBOXYHEMOGLOBIN 0.3 % (0.5-1.5); BG DEOXYHEMOGLOBIN 3.5 % (0.0-5.0); BG FRACTION INSPIRED OXYGEN 35; BG HCO3 ACT 22.2 mmol/L (22.0-26.0); BG METHEMOGLOBIN 0.3 % (0.0-1.5); BG OXYGEN SATURATION 96.5 % (92.0-98.5); BG OXYHEMOGLOBIN 95.9 % (94.0-97.0); BG PCO2 41.6 mmHg (35.0-45.0); BG PH 7.345 (7.350-7.450); BG SAMPLE SITE RIGHT RADIAL; BG TIDAL VOLUME(mL) 500 mL; BG TOTAL HEMOGLOBIN 10.3 g/dL (12.0-18.0); BG VENT MODE VENT - A/C; BG VENT RATE 18 set
[2018-12-25 10:00] LABS: PLATELET ESTIMATE NORMAL
[2018-12-25] MEDS: LORAZEPAM 2MG/ML CPJ IV PRN (11:45)
[2018-12-25 12:37] LABS: BG BASE EXCESS -2.9 mmol/L (-2.0-2.0); BG CARBOXYHEMOGLOBIN 0.6 % (0.5-1.5); BG FRACTION INSPIRED OXYGEN 35; BG HCO3 ACT 23.3 mmol/L (22.0-26.0); BG METHEMOGLOBIN 0.2 % (0.0-1.5); BG OXYGEN SATURATION 73.8 % (92.0-98.5); BG OXYHEMOGLOBIN 73.2 % (94.0-97.0); BG PCO2 46.8 mmHg (35.0-45.0); BG PH 7.315 (7.350-7.450); BG PO2 40.4 mmHg (75.0-100.0); BG PRESSURE SUPPORT 8; BG SAMPLE SITE RIGHT RADIAL; BG TOTAL HEMOGLOBIN 10.6 g/dL (12.0-18.0); BG VENT MODE VENT - CPAP
[2018-12-25] MEDS: GENTAMICIN 100MG PREMIX 50 ML IV SCH (12:40)
[2018-12-25] MEDS: ENOXAPARIN 40MG/0.4ML SYR SUBCUT SCH (12:41)
[2018-12-25] MEDS: FLUCONAZOLE 200 MG/100ML BAG 100 ML IV SCH (13:23)
[2018-12-25] MEDS: BLOOD SUGAR DIAGNOSTIC STRIP TEST SCH (21:06)
[2018-12-25] MEDS: INSULIN LISPRO 100 UNITS/ML SUBCUT SCH (21:16)
[2018-12-26] VITALS (55 sets, daily range): BP systolic 80–167; BP diastolic 25–121
[2018-12-26] MEDS: IPRATROPIUM BROMIDE (0.02%) 0.5MG/2.5ML NEB HHN SCH ×6 (00:33→20:46)
[2018-12-26] MEDS: DEXT 5%/0.45% NACL 1000ML 1,000 ML IV SCH ×2 (00:52→17:24)
[2018-12-26] MEDS: GENTAMICIN 100MG PREMIX 50 ML IV SCH (06:46)
[2018-12-26] MEDS: BLOOD SUGAR DIAGNOSTIC STRIP TEST SCH ×3 (08:04→17:23)
[2018-12-26] MEDS: INSULIN LISPRO 100 UNITS/ML SUBCUT SCH ×3 (08:32→17:24)
[2018-12-26] MEDS: FAMOTIDINE 20MG/2ML VIAL IV SCH (08:38)
[2018-12-26] MEDS: QUETIAPINE FUMARATE 25MG TABLET PO SCH ×2 (08:38→22:01)
[2018-12-26] MEDS: METHYLPREDNISOLONE SOD SUCC 40 MG/ML VIAL IV SCH ×2 (08:38→17:24)
[2018-12-26 08:47] LABS: BG BASE EXCESS 0.4 mmol/L (-2.0-2.0); BG CARBOXYHEMOGLOBIN 0.2 % (0.5-1.5); BG DEOXYHEMOGLOBIN 2.9 % (0.0-5.0); BG FRACTION INSPIRED OXYGEN 35; BG HCO3 ACT 26.2 mmol/L (22.0-26.0); BG METHEMOGLOBIN 0.1 % (0.0-1.5); BG OXYGEN SATURATION 97.1 % (92.0-98.5); BG OXYHEMOGLOBIN 96.8 % (94.0-97.0); BG PCO2 47.3 mmHg (35.0-45.0); BG PEEP (cmH2O) 0 cmH2O; BG PH 7.361 (7.350-7.450); BG PO2 96.2 mmHg (75.0-100.0); BG SAMPLE SITE RIGHT RADIAL; BG TIDAL VOLUME(mL) 500 mL; BG TOTAL HEMOGLOBIN 10.3 g/dL (12.0-18.0); BG VENT MODE VENT - A/C; BG VENT RATE 18 set
[2018-12-26] MEDS: ENOXAPARIN 40MG/0.4ML SYR SUBCUT SCH (12:00)
[2018-12-26] MEDS: FLUCONAZOLE 200 MG/100ML BAG 100 ML IV SCH (12:49)
[2018-12-26] MEDS: FENTANYL CITRATE/PF 1,000 MCG in SODIUM CHLORIDE 0.9% 80 ML IV PRN (20:19)
[2018-12-26 21:09] LABS: CHLORIDE 106 mEq/L (98-107); PROTHROMBIN TIME 10.7 sec (9.6-11.0)
[2018-12-26] MEDS: MIDAZOLAM HCL 50 MG in DEXTROSE 5% WATER 50ML IV PRN (22:00)
[2018-12-27] VITALS (45 sets, daily range): BP systolic 108–177; BP diastolic 60–128
[2018-12-27] MEDS ORDERED: MIDAZOLAM HCL 100 MG in DEXTROSE 5% WATER 80 ML IV PRN ×2
[2018-12-27] MEDS: IPRATROPIUM BROMIDE (0.02%) 0.5MG/2.5ML NEB HHN SCH ×6 (00:22→20:34)
[2018-12-27] MEDS: GENTAMICIN 100MG PREMIX 50 ML IV SCH ×2 (01:18→18:19)
[2018-12-27] MEDS: FENTANYL CITRATE/PF 1,000 MCG in SODIUM CHLORIDE 0.9% 80 ML IV PRN (04:51)
[2018-12-27 05:41] LABS: CHLORIDE 104 mEq/L (98-107)
[2018-12-27] MEDS: INSULIN LISPRO 100 UNITS/ML SUBCUT SCH ×3 (06:00→12:00)
[2018-12-27] MEDS: BLOOD SUGAR DIAGNOSTIC STRIP TEST SCH ×3 (06:59→12:00)
[2018-12-27] MEDS: QUETIAPINE FUMARATE 25MG TABLET PO SCH ×2 (09:00→22:09)
[2018-12-27] MEDS: FAMOTIDINE 20MG/2ML VIAL IV SCH (09:03)
[2018-12-27] MEDS: METHYLPREDNISOLONE SOD SUCC 40 MG/ML VIAL IV SCH ×2 (09:09→16:23)
[2018-12-27] MEDS: DEXT 5%/0.45% NACL 1000ML 1,000 ML IV SCH (11:32)
[2018-12-28] VITALS (48 sets, daily range): BP systolic 89–157; BP diastolic 52–101
[2018-12-28] MEDS: IPRATROPIUM BROMIDE (0.02%) 0.5MG/2.5ML NEB HHN SCH ×6 (00:32→19:40)
[2018-12-28] MEDS: BLOOD SUGAR DIAGNOSTIC STRIP TEST SCH ×3 (00:33→12:04)
[2018-12-28] MEDS: FENTANYL CITRATE/PF 1,000 MCG in SODIUM CHLORIDE 0.9% 80 ML IV PRN (03:36)
[2018-12-28] MEDS: DEXT 5%/0.45% NACL 1000ML 1,000 ML IV SCH ×2 (04:38→20:32)
[2018-12-28 05:39] LABS: HEMATOCRIT. 31.7 % (42.0-52.0); HEMOGLOBIN. 10.4 g/dL (14.0-18.0); MEAN CORPUSCULAR HEMOGLOBIN 29.1 pg (28.0-32.0); MEAN CORPUSCULAR VOLUME 88.6 fL (80.0-94.0); MEAN PLATELET VOLUME 9.2 fl (7.4-10.4); PLATELET 176 x1000/uL (130-400); RED BLOOD CELL COUNT 3.58 mill/uL (4.7-6.1); RED CELL DISTRIBUTION WIDTH 16.5 % (11.6-14.6)
[2018-12-28 05:57] LABS: CHLORIDE 102 mEq/L (98-107)
[2018-12-28] MEDS: INSULIN LISPRO 100 UNITS/ML SUBCUT SCH ×4 (07:11→17:53)
[2018-12-28] MEDS: METHYLPREDNISOLONE SOD SUCC 40 MG/ML VIAL IV SCH ×2 (08:49→17:53)
[2018-12-28] MEDS: FAMOTIDINE 20MG/2ML VIAL IV SCH (08:49)
[2018-12-28] MEDS: QUETIAPINE FUMARATE 25MG TABLET PO SCH ×2 (08:49→22:44)
[2018-12-28 12:20] LABS: PLATELET ESTIMATE NORMAL
[2018-12-28 17:06] LABS: PROTHROMBIN TIME 38.6 sec (9.6-11.0)
[2018-12-28] MEDS ORDERED: MIDAZOLAM HCL 100 MG in DEXT 5% WATER 80 ML IV PRN (18:39)
[2018-12-29] VITALS (49 sets, daily range): BP systolic 91–169; BP diastolic 50–98
[2018-12-29] MEDS: IPRATROPIUM BROMIDE (0.02%) 0.5MG/2.5ML NEB HHN SCH ×5 (00:15→20:30)
[2018-12-29 07:10] LABS: HEMOGLOBIN. 10.1 g/dL (14.0-18.0); MEAN CORPUSCULAR HEMOGLOBIN 29.2 pg (28.0-32.0); MEAN CORPUSCULAR VOLUME 89.5 fL (80.0-94.0); MEAN PLATELET VOLUME 9.6 fl (7.4-10.4); PLATELET 157 x1000/uL (130-400); RED BLOOD CELL COUNT 3.46 mill/uL (4.7-6.1); RED CELL DISTRIBUTION WIDTH 16.6 % (11.6-14.6)
[2018-12-29 07:17] LABS: CHLORIDE 103 mEq/L (98-107)
[2018-12-29] MEDS: QUETIAPINE FUMARATE 25MG TABLET PO SCH ×2 (09:00→21:00)
[2018-12-29 11:47] LABS: PLATELET ESTIMATE NORMAL
[2018-12-29] MEDS: INSULIN LISPRO 100 UNITS/ML SUBCUT SCH ×3 (12:00→18:00)
[2018-12-29] MEDS: BLOOD SUGAR DIAGNOSTIC STRIP TEST SCH ×3 (12:00→18:00)
[2018-12-29] MEDS: GENTAMICIN SULFATE 200 MG in SODIUM CHLORIDE 0.9% 100 ML IV SCH (12:54)
[2018-12-29] MEDS: FAMOTIDINE 20MG/2ML VIAL IV SCH (12:54)
[2018-12-29] MEDS: DEXT 5%/0.45% NACL 1000ML 1,000 ML IV SCH (12:59)
[2018-12-29] MEDS: RACEPINEPHRINE 2.25% 0.5ML NEB VIAL HHN PRN (13:52)
[2018-12-30] VITALS (53 sets, daily range): BP systolic 72–168; BP diastolic 49–112
[2018-12-30] MEDS: IPRATROPIUM BROMIDE (0.02%) 0.5MG/2.5ML NEB HHN SCH ×6 (00:16→20:54)
[2018-12-30] MEDS: DEXT 5%/0.45% NACL 1000ML 1,000 ML IV SCH ×2 (02:53→23:36)
[2018-12-30] MEDS: DEXTROSE 50% WATER 50ML SYRINGE IV PRN (05:23)
[2018-12-30] MEDS: BLOOD SUGAR DIAGNOSTIC STRIP TEST SCH ×4 (06:00→18:14)
[2018-12-30] MEDS: INSULIN LISPRO 100 UNITS/ML SUBCUT SCH ×4 (06:00→18:00)
[2018-12-30 06:17] LABS: HEMOGLOBIN. 10.6 g/dL (14.0-18.0); MEAN CORPUSCULAR HEMOGLOBIN 29.6 pg (28.0-32.0); MEAN PLATELET VOLUME 9.4 fl (7.4-10.4); PLATELET 181 x1000/uL (130-400); RED CELL DISTRIBUTION WIDTH 16.6 % (11.6-14.6)
[2018-12-30 06:22] LABS: CHLORIDE 102 mEq/L (98-107)
[2018-12-30] MEDS: RACEPINEPHRINE 2.25% 0.5ML NEB VIAL HHN PRN ×3 (07:39→15:22)
[2018-12-30] MEDS: QUETIAPINE FUMARATE 25MG TABLET PO SCH ×2 (08:18→23:38)
[2018-12-30] MEDS: FAMOTIDINE 20MG/2ML VIAL IV SCH (08:18)
[2018-12-30 09:00] LABS: BG BASE EXCESS 2.5 mmol/L (-2.0-2.0); BG CARBOXYHEMOGLOBIN 0.6 % (0.5-1.5); BG DEOXYHEMOGLOBIN 5.9 % (0.0-5.0); BG FRACTION INSPIRED OXYGEN 30; BG HCO3 ACT 25.9 mmol/L (22.0-26.0); BG METHEMOGLOBIN 0.5 % (0.0-1.5); BG PCO2 35.7 mmHg (35.0-45.0); BG PH 7.478 (7.350-7.450); BG PO2 67.3 mmHg (75.0-100.0); BG SAMPLE SITE RIGHT RADIAL; BG TIDAL VOLUME(mL) 500 mL; BG VENT MODE VENT - A/C; BG VENT RATE 18 set
[2018-12-30] MEDS ORDERED: MIDAZOLAM HCL 5 MG/5 ML VIAL ONE (09:19)
[2018-12-30] MEDS ORDERED: FENTANYL CITRATE/PF 50MCG/ML 2ML VIAL ONE (09:19)
[2018-12-30] MEDS ORDERED: MIDAZOLAM HCL 2 MG/2 ML VIAL IV PRN (10:02)
[2018-12-30] MEDS ORDERED: BACTERIOSTATIC SODIUM CHLORIDE 0.9% 30ML VIAL IJ ONE (10:44)
[2018-12-30] MEDS ORDERED: SIMETHICONE 40 MG/0.6 ML 30ML ONE (10:44)
[2018-12-30] MEDS: LORAZEPAM 2MG/ML CPJ IV PRN ×2 (12:43→18:05)
[2018-12-30 14:27] LABS: NUCLEATED RED BLOOD CELLS 1 /100 WBC; PLATELET ESTIMATE NORMAL
[2018-12-30] MEDS: MORPHINE SULFATE 2 MG/ML CPJ (NOT FOR IM USE) IV PRN (15:02)
[2018-12-31] VITALS (66 sets, daily range): BP systolic 67–168; BP diastolic 28–98
[2018-12-31] MEDS: IPRATROPIUM BROMIDE (0.02%) 0.5MG/2.5ML NEB HHN SCH ×6 (00:21→20:06)
[2018-12-31] MEDS: BLOOD SUGAR DIAGNOSTIC STRIP TEST SCH ×4 (00:28→17:24)
[2018-12-31] MEDS: DEXTROSE 50% WATER 50ML SYRINGE IV PRN (00:29)
[2018-12-31 05:50] LABS: HEMATOCRIT. 30.6 % (42.0-52.0); HEMOGLOBIN. 10.3 g/dL (14.0-18.0); MEAN CORPUSCULAR HEMOGLOBIN 29.6 pg (28.0-32.0); MEAN CORPUSCULAR VOLUME 88.1 fL (80.0-94.0); MEAN PLATELET VOLUME 8.8 fl (7.4-10.4); PLATELET 174 x1000/uL (130-400); RED BLOOD CELL COUNT 3.47 mill/uL (4.7-6.1); RED CELL DISTRIBUTION WIDTH 16.4 % (11.6-14.6)
[2018-12-31] MEDS: INSULIN LISPRO 100 UNITS/ML SUBCUT SCH ×4 (06:00→17:36)
[2018-12-31 06:18] LABS: CHLORIDE 102 mEq/L (98-107)
[2018-12-31] MEDS: METOCLOPRAMIDE HCL 10MG/2ML VIAL IV SCH ×3 (06:18→17:28)
[2018-12-31 08:43] LABS: PLATELET ESTIMATE NORMAL
[2018-12-31] MEDS: ACETYLCYSTEINE 100MG/ML 10% VIAL 4ML INH SCH ×2 (08:51→15:53)
[2018-12-31] MEDS: GENTAMICIN SULFATE 200 MG in SODIUM CHLORIDE 0.9% 100 ML IV SCH (09:14)
[2018-12-31] MEDS: FAMOTIDINE 20MG/2ML VIAL IV SCH (09:14)
[2018-12-31] MEDS: QUETIAPINE FUMARATE 25MG TABLET PO SCH ×2 (09:53→22:59)
[2018-12-31] MEDS: METHYLPREDNISOLONE SOD SUCC 40 MG/ML VIAL IV SCH ×2 (09:53→17:28)
[2018-12-31 10:25] LABS: BG BASE EXCESS 0.7 mmol/L (-2.0-2.0); BG CARBOXYHEMOGLOBIN 0.4 % (0.5-1.5); BG DEOXYHEMOGLOBIN 4.3 % (0.0-5.0); BG FRACTION INSPIRED OXYGEN 35; BG HCO3 ACT 23.5 mmol/L (22.0-26.0); BG METHEMOGLOBIN 0.3 % (0.0-1.5); BG OXYGEN SATURATION 95.7 % (92.0-98.5); BG PCO2 31.7 mmHg (35.0-45.0); BG PH 7.488 (7.350-7.450); BG PO2 76.2 mmHg (75.0-100.0); BG SAMPLE SITE RIGHT RADIAL; BG TIDAL VOLUME(mL) 500 mL; BG TOTAL HEMOGLOBIN 11.1 g/dL (12.0-18.0); BG VENT MODE VENT - A/C; BG VENT RATE 16 set
[2018-12-31] MEDS: LORAZEPAM 2MG/ML CPJ IV PRN ×2 (11:26→17:28)
[2018-12-31] MEDS: MORPHINE SULFATE 2 MG/ML CPJ (NOT FOR IM USE) IV PRN ×2 (12:48→13:59)
[2018-12-31] MEDS: MEROPENEM 1000MG in NORMAL SALINE 100ML IV SCH ×2 (13:53→22:59)
[2018-12-31] MEDS ORDERED: METRONIDAZOLE 500 MG PREMIX 100 ML IV SCH (14:00)
[2018-12-31] MEDS: DEXT 5%/0.45% NACL 1000ML 1,000 ML IV SCH (15:30)
[2019-01-01] VITALS (59 sets, daily range): BP systolic 75–188; BP diastolic 44–113
[2019-01-01] MEDS: ACETYLCYSTEINE 100MG/ML 10% VIAL 4ML INH SCH (00:02)
[2019-01-01] MEDS: IPRATROPIUM BROMIDE (0.02%) 0.5MG/2.5ML NEB HHN SCH ×6 (00:02→20:04)
[2019-01-01] MEDS: BLOOD SUGAR DIAGNOSTIC STRIP TEST SCH ×4 (00:52→17:36)
[2019-01-01] MEDS: METOCLOPRAMIDE HCL 10MG/2ML VIAL IV SCH ×4 (01:02→17:51)
[2019-01-01] MEDS: LORAZEPAM 2MG/ML CPJ IV PRN ×4 (02:26→22:54)
[2019-01-01] MEDS: METHYLPREDNISOLONE SOD SUCC 40 MG/ML VIAL IV SCH ×3 (02:27→17:51)
[2019-01-01] MEDS: MEROPENEM 1000MG in NORMAL SALINE 100ML IV SCH ×3 (05:41→21:49)
[2019-01-01] MEDS: INSULIN LISPRO 100 UNITS/ML SUBCUT SCH ×4 (05:47→17:50)
[2019-01-01 06:01] LABS: HEMATOCRIT. 29.7 % (42.0-52.0); HEMOGLOBIN. 9.9 g/dL (14.0-18.0); MEAN CORPUSCULAR HEMOGLOBIN 29.7 pg (28.0-32.0); MEAN CORPUSCULAR VOLUME 89.3 fL (80.0-94.0); MEAN PLATELET VOLUME 9.1 fl (7.4-10.4); PLATELET 163 x1000/uL (130-400); RED BLOOD CELL COUNT 3.33 mill/uL (4.7-6.1); RED CELL DISTRIBUTION WIDTH 16.5 % (11.6-14.6)
[2019-01-01 06:20] LABS: CHLORIDE 104 mEq/L (98-107)
[2019-01-01] MEDS: FAMOTIDINE 20MG/2ML VIAL IV SCH (08:20)
[2019-01-01] MEDS: QUETIAPINE FUMARATE 25MG TABLET PO SCH ×2 (08:21→21:43)
[2019-01-01 09:09] LABS: PLATELET ESTIMATE NORMAL
[2019-01-01] MEDS: MORPHINE SULFATE 2 MG/ML CPJ (NOT FOR IM USE) IV PRN (09:40)
[2019-01-02] VITALS (40 sets, daily range): BP systolic 92–162; BP diastolic 50–105
[2019-01-02] MEDS: ACETYLCYSTEINE 100MG/ML 10% VIAL 4ML INH SCH ×2 (00:25→15:50)
[2019-01-02] MEDS: IPRATROPIUM BROMIDE (0.02%) 0.5MG/2.5ML NEB HHN SCH ×6 (00:25→20:26)
[2019-01-02] MEDS: METOCLOPRAMIDE HCL 10MG/2ML VIAL IV SCH (00:35)
[2019-01-02] MEDS: INSULIN LISPRO 100 UNITS/ML SUBCUT SCH ×4 (00:35→18:00)
[2019-01-02] MEDS: BLOOD SUGAR DIAGNOSTIC STRIP TEST SCH ×4 (00:36→18:30)
[2019-01-02] MEDS: METHYLPREDNISOLONE SOD SUCC 40 MG/ML VIAL IV SCH ×3 (02:50→17:00)
[2019-01-02] MEDS: MEROPENEM 1000MG in NORMAL SALINE 100ML IV SCH ×3 (06:50→21:38)
[2019-01-02] MEDS: QUETIAPINE FUMARATE 25MG TABLET PO SCH ×2 (10:33→21:38)
[2019-01-02] MEDS: FAMOTIDINE 20MG/2ML VIAL IV SCH (10:33)
[2019-01-02] MEDS: METOPROLOL TARTRATE 25MG TABLET PO SCH ×2 (10:39→21:38)
[2019-01-03] VITALS (16 sets, daily range): BP systolic 98–167; BP diastolic 55–96
[2019-01-03] MEDS: BLOOD SUGAR DIAGNOSTIC STRIP TEST SCH ×5 (00:17→23:42)
[2019-01-03] MEDS: INSULIN LISPRO 100 UNITS/ML SUBCUT SCH ×5 (00:21→23:50)
[2019-01-03] MEDS: ACETYLCYSTEINE 100MG/ML 10% VIAL 4ML INH SCH ×3 (00:35→15:47)
[2019-01-03] MEDS: IPRATROPIUM BROMIDE (0.02%) 0.5MG/2.5ML NEB HHN SCH ×6 (00:36→20:19)
[2019-01-03] MEDS: MEROPENEM 1000MG in NORMAL SALINE 100ML IV SCH ×3 (06:38→21:13)
[2019-01-03] MEDS: RACEPINEPHRINE 2.25% 0.5ML NEB VIAL HHN PRN (08:28)
[2019-01-03] MEDS: METHYLPREDNISOLONE SOD SUCC 40 MG/ML VIAL IV SCH ×2 (09:54→16:33)
[2019-01-03] MEDS: FAMOTIDINE 20MG/2ML VIAL IV SCH (09:55)
[2019-01-03] MEDS: QUETIAPINE FUMARATE 25MG TABLET PO SCH ×2 (09:56→20:58)
[2019-01-03] MEDS: METOPROLOL TARTRATE 25MG TABLET PO SCH ×2 (09:56→20:58)
[2019-01-03 11:06] LABS: BG BASE EXCESS 2.2 mmol/L (-2.0-2.0); BG CARBOXYHEMOGLOBIN 0.3 % (0.5-1.5); BG DEOXYHEMOGLOBIN 2.2 % (0.0-5.0); BG FRACTION INSPIRED OXYGEN 35; BG HCO3 ACT 25.6 mmol/L (22.0-26.0); BG METHEMOGLOBIN 0.3 % (0.0-1.5); BG OXYGEN SATURATION 97.8 % (92.0-98.5); BG OXYHEMOGLOBIN 97.2 % (94.0-97.0); BG PCO2 34.9 mmHg (35.0-45.0); BG PH 7.483 (7.350-7.450); BG PO2 105.7 mmHg (75.0-100.0); BG SAMPLE SITE RIGHT RADIAL; BG TIDAL VOLUME(mL) 500 mL; BG TOTAL HEMOGLOBIN 9.3 g/dL (12.0-18.0); BG VENT MODE VENT - A/C; BG VENT RATE 14 set
[2019-01-04] VITALS (12 sets, daily range): BP systolic 115–153; BP diastolic 66–91
[2019-01-04] MEDS: IPRATROPIUM BROMIDE (0.02%) 0.5MG/2.5ML NEB HHN SCH ×6 (00:23→20:50)
[2019-01-04] MEDS: MEROPENEM 1000MG in NORMAL SALINE 100ML IV SCH ×3 (05:12→21:29)
[2019-01-04] MEDS: INSULIN LISPRO 100 UNITS/ML SUBCUT SCH ×3 (05:13→17:19)
[2019-01-04] MEDS: BLOOD SUGAR DIAGNOSTIC STRIP TEST SCH ×3 (05:13→17:07)
[2019-01-04] MEDS: METOPROLOL TARTRATE 25MG TABLET PO SCH ×2 (08:39→21:31)
[2019-01-04] MEDS: METHYLPREDNISOLONE SOD SUCC 40 MG/ML VIAL IV SCH ×2 (08:39→16:11)
[2019-01-04] MEDS: QUETIAPINE FUMARATE 25MG TABLET PO SCH ×2 (08:39→21:31)
[2019-01-04] MEDS: ACETYLCYSTEINE 100MG/ML 10% VIAL 4ML INH SCH ×2 (09:19→17:11)
[2019-01-04] MEDS: FAMOTIDINE 20MG/2ML VIAL IV SCH (10:02)
[2019-01-05] VITALS (11 sets, daily range): BP systolic 110–142; BP diastolic 63–76
[2019-01-05] MEDS: ACETYLCYSTEINE 100MG/ML 10% VIAL 4ML INH SCH ×3 (00:22→11:48)
[2019-01-05] MEDS: IPRATROPIUM BROMIDE (0.02%) 0.5MG/2.5ML NEB HHN SCH ×6 (00:23→21:08)
[2019-01-05] MEDS: BLOOD SUGAR DIAGNOSTIC STRIP TEST SCH ×5 (00:25→23:16)
[2019-01-05] MEDS: MEROPENEM 1000MG in NORMAL SALINE 100ML IV SCH ×3 (05:46→23:08)
[2019-01-05] MEDS: INSULIN LISPRO 100 UNITS/ML SUBCUT SCH ×5 (05:47→23:22)
[2019-01-05] MEDS: METHYLPREDNISOLONE SOD SUCC 40 MG/ML VIAL IV SCH (08:44)
[2019-01-05] MEDS: METOPROLOL TARTRATE 25MG TABLET PO SCH ×2 (08:44→21:52)
[2019-01-05] MEDS: FAMOTIDINE 20MG/2ML VIAL IV SCH (08:44)
[2019-01-05] MEDS: QUETIAPINE FUMARATE 25MG TABLET PO SCH ×2 (08:45→21:51)
[2019-01-06] VITALS (10 sets, daily range): BP systolic 110–136; BP diastolic 54–93
[2019-01-06] MEDS: IPRATROPIUM BROMIDE (0.02%) 0.5MG/2.5ML NEB HHN SCH ×5 (00:50→15:42)
[2019-01-06] MEDS: MEROPENEM 1000MG in NORMAL SALINE 100ML IV SCH ×2 (05:14→13:57)
[2019-01-06] MEDS: BLOOD SUGAR DIAGNOSTIC STRIP TEST SCH ×2 (05:30→12:00)
[2019-01-06] MEDS: INSULIN LISPRO 100 UNITS/ML SUBCUT SCH ×2 (05:47→12:19)
[2019-01-06] MEDS: QUETIAPINE FUMARATE 25MG TABLET PO SCH (08:52)
[2019-01-06] MEDS: FAMOTIDINE 20MG/2ML VIAL IV SCH (08:53)
[2019-01-06] MEDS: METOPROLOL TARTRATE 25MG TABLET PO SCH (08:54)
[2019-01-06] MEDS ORDERED: METHYLPREDNISOLONE SOD SUCC 40 MG/ML VIAL IV SCH (09:00)
== END 2019-01-06 17:01 | DRG 3 ==
LOC: ER 16:58 → CVICU 20:59 → EDBEDREQTM 21:03 → EDBEDREQ 21:03 → EDBEDREQSVC 21:03 → ENRESERV 12-19 01:47 → 5EST 01-03 06:00
PROVIDERS: ADMIT Hospitalist; ATTEND Hospitalist
PROC: 5A1955Z Respiratory Ventilation, Greater than 96 Consecutive Hours (ICD-10-PCS; principal; 2018-12-18)
PROC: 0BH17EZ Insertion of Endotracheal Airway into Trachea, Via Natural or Artificial Opening (ICD-10-PCS; 2018-12-18)
PROC: 05H533Z Insertion of Infusion Device into Right Subclavian Vein, Percutaneous Approach (ICD-10-PCS; 2018-12-22)
PROC: B546ZZA Ultrasonography of Right Subclavian Vein, Guidance (ICD-10-PCS; 2018-12-22)
PROC: 0GBJ0ZZ Excision of Thyroid Gland Isthmus, Open Approach (ICD-10-PCS; 2018-12-27)
PROC: 0B110F4 Bypass Trachea to Cutaneous with Tracheostomy Device, Open Approach (ICD-10-PCS; 2018-12-27)
PROC: 0DH63UZ Insertion of Feeding Device into Stomach, Percutaneous Approach (ICD-10-PCS; 2018-12-30)
DX: B37.7 Candidal sepsis (principal); R65.21 Severe sepsis with septic shock; J18.1 Lobar pneumonia, unspecified organism; J96.20 Acute and chronic respiratory failure, unspecified whether with hypoxia or hypercapnia; I63.9 Cerebral infarction, unspecified; J93.83 Other pneumothorax; E87.0 Hyperosmolality and hypernatremia; I50.32 Chronic diastolic (congestive) heart failure; I13.0 Hypertensive heart and chronic kidney disease with heart failure and stage 1 through stage 4 chronic kidney disease, or unspecified chronic kidney disease; J93.9 Pneumothorax, unspecified; Z99.11 Dependence on respirator [ventilator] status; D64.9 Anemia, unspecified; E78.5 Hyperlipidemia, unspecified; N18.9 Chronic kidney disease, unspecified; J43.9 Emphysema, unspecified; F03.90 Unspecified dementia, unspecified severity, without behavioral disturbance, psychotic disturbance, mood disturbance, and anxiety; E87.5 Hyperkalemia; I25.10 Atherosclerotic heart disease of native coronary artery without angina pectoris; I73.9 Peripheral vascular disease, unspecified; K29.80 Duodenitis without bleeding; R13.10 Dysphagia, unspecified; B37.49 Other urogenital candidiasis; Z66 Do not resuscitate; Z86.73 Personal history of transient ischemic attack (TIA), and cerebral infarction without residual deficits; R31.9 Hematuria, unspecified; I25.2 Old myocardial infarction; Z87.440 Personal history of urinary (tract) infections; Z99.81 Dependence on supplemental oxygen
CPT/HCPCS: 36415; 36600; 71045; 71046; 71250; 76937; 80048; 80170; 80320; 81003; 82375; 82550; 82553; 82805; 82962; 83605; 83880; 84443; 84484; 85027; 87070; 87077; 87106; 87186; 93005; 93306; 94002; 94003; 94640; 96365; 99285; C1725; J1450; J1580; J1650; J1815; J1956; J2060; J2185; J2250; J2270; J2704; J2765; J2920; J2930; J3010; J3490; J7040; J7050; J7060; J7608; J7620; J7626; G0480